=== PATIENT | male | born 1955 | race Two or more races ===

== ENCOUNTER 2024-09-26 15:13 | Observation (INO) | payer OTHER, MEDICAID, SELFPAY ==
[2024-09-26 15:15] VITALS: BP 120/68; PULSE 75; RESP 18; TEMP 36.7; O2SAT 96; BMI 31.6
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
[2024-09-26 15:26] VITALS: PULSE 94; RESP 18; O2SAT 96; BMI 31.6
[2024-09-26 16:15] LABS: Basophils # (Auto) 0.1 Thou/mm3 (0.0-0.2); Basophils % (Auto) 1 % (0-2.5); Eosinophils # (Auto) 0.1 Thou/mm3 (0.0-0.5); Eosinophils % (Auto) 1 % (0-10); Hematocrit 28.3 % (41.0-53.0); Hemoglobin 9.5 g/dL (13.5-16.0); Immature Granulocytes Auto 0.13 Thou/mm3 (0.00-0.00); Lactate (Lactic Acid) 2.7 mMol/L (0.4-2.0); Lymphocytes # (Auto) 3.0 Thou/mm3 (1.0-4.8); Lymphocytes % (Auto) 25 % (10-50); Mean Corpuscular HGB Conc 33.6 g/dl (31.0-37.0); Mean Corpuscular Hemoglobin 30.7 pg (25.0-35.0); Mean Corpuscular Volume 92 fL (80-100); Monocytes # (Auto) 0.8 Thou/mm3 (0.0-0.8); Monocytes % (Auto) 7 % (0-12); Neutrophils # (Auto) 7.7 Thou/mm3 (1.8-7.7); Neutrophils % (Auto) 65 % (37-80); Nucleated Red Blood Cell # 0.00 Thou/mm3 (0.00-0.00); Nucleated Red Blood Cell % 0 /100 WBC (0); Platelet Count 129 Thou/mm3 (140-440); RDW Standard Deviation 46.2 fL (35.1-43.9); Red Blood Count 3.09 Miln/mm3 (4.50-5.90); White Blood Count 11.9 Thou/mm3 (3.8-10.6)
[2024-09-26 16:48] LABS: Alanine Aminotransferase 24 U/L (10-49); Albumin, Serum 3.9 gm/dL (3.4-4.8); Albumin/Globulin Ratio 1.6 (1.2-2.2); Alcohol, Blood Medical < 3.0 mg/dL (0-10.0); Alkaline Phosphatase 92 U/L (46-116); Anion Gap 14 (7-16); Aspartate Amino Transferase 24 U/L (0-34); BUN/Creatinine Ratio 21 Ratio (12-20); Bilirubin,Total 0.6 mg/dL (0.3-1.2); Blood Urea Nitrogen 31 mg/dL (9-23); Calcium 9.2 mg/dL (8.3-10.6); Calcium (Corrected) 9.3 mg/dL (8.5-10.1); Carbon Dioxide 16.2 mMol/L (20.0-31.0); Chloride 110 mMol/L (98-107); Creatinine (Component) 1.5 mg/dL (0.6-1.3); Estimated Creatinine Clearance 48.8 mL/min (>60); Globulin 2.5 gm/dL (2.3-3.5); Glucose 104 mg/dL (74-106); Lipase 182 U/L (12-53); Osmolality,Calculated 285 (275-295); Potassium 4.1 mMol/L (3.4-5.1); Sodium 140 mMol/L (136-145); Total Protein 6.4 gm/dL (5.7-8.2); eGFR 49 See Note
[2024-09-26 17:01] LABS: INR 1.0 (0.9-1.3); Prothrombin Time 11.4 Seconds (9.0-12.2)
[2024-09-26] MEDS: MORPHINE SULF INJ 10 MG/ML VIAL 4 MG IM (17:18)
[2024-09-26] MEDS: RINGERS LACTATED 1000 ML 1,000 ML 999 ML IV ×2 (17:19→23:49)
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
[2024-09-26 19:11] LABS: Reflex Lactate? Y
[2024-09-26 19:35] VITALS: BP 102/47; PULSE 59; RESP 18; TEMP 36.4; O2SAT 97
[2024-09-26 19:41] LABS: Lactic Acid, 3 HR 4.6 mMol/L (0.4-2.0)
[2024-09-26 20:08] VITALS: BP 117/54; PULSE 74; RESP 15; TEMP 37.1; O2SAT 100
[2024-09-26 20:10] VITALS: PULSE 71
[2024-09-26] MEDS: ceFAZolin/D5W 2 GM IV 2 GM/100 ML BAG IV (20:11)
[2024-09-26] MEDS: MORPHINE SULF INJ 10 MG/ML VIAL 4 MG IVP (21:49)
[2024-09-26] MEDS: ONDANSETRON INJ 2 MG/ML INJ 2 ML 4 MG IVP (21:49)
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
[2024-09-26 22:25] VITALS: PULSE 66
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
[2024-09-27] VITALS (8 sets, daily range): BP systolic 121–159; BP diastolic 58–75; PULSE 62–88; RESP 16–18; TEMP 36.7–37.2; O2SAT 96–100
[2024-09-27 00:05] LABS: Lactate (Lactic Acid) 2.4 mMol/L (0.4-2.0)
[2024-09-27 00:31] LABS: Creatine Kinase 429 U/L (34-171)
--- NOTE | 2024-09-27 01:45 | PRELIM_ITS ---
Left upper extremity venous Doppler ultrasound. September 26, 2024 at 2356 hours Clinical history: Deep vein thrombosis, rule out. Technique: Duplex scan of the left arm performed utilizing, 2D grayscale imaging, Doppler spectral analysis and color flow Doppler with compression. Comparison: No prior study is available for comparison. Findings: The internal jugular vein is patent and compressible. The subclavian vein is patent. The axillary and brachial veins are patent and demonstrate good compression. The cephalic and basilic veins are patent and demonstrate good compression. The radial and ulnar veins are patent and compressible. No evidence of thrombosis. Impression: No evidence of venous thrombosis in the left upper extremity. Report Electronically Signed By: Galen Moreno 09/27/2024 1:45:05 AM [EST]
[2024-09-27] MEDS: RINGERS LACTATED 1000 ML 1,000 ML 100 ML IV ×2 (01:56→13:02)
[2024-09-27 02:06] LABS: Collection Type, Urine Voided; Squamous Epithelial Cell,Urine 0 /hpf (0-5)
[2024-09-27 02:14] LABS: Bilirubin,Urine Negative (Negative); Blood,Urine Negative (Negative); Clarity,Urine Clear (Clear/Hazy); Color,Urine Lt-Yellow (Lt Yel-Yel); Culture Indicated,Urine Not Indicated; Glucose, Urine Negative (Negative); Hyaline Casts,Urine < 1 /hpf (0-1); Ketones,Urine Negative (Negative); Leukocyte Esterase,Urine Negative (Negative); Nitrite,Urine Negative (Negative); PH,Urine 5.5 (5.0-7.0); Protein,Urine Negative (Neg - Trace); RBC,Urine 2 /hpf (0-3); Specific Gravity,Urine 1.028 (1.001-1.035); Urobilinogen,Urine Negative mg/dL (0.0-1.0); WBC,Urine 1 /hpf (0-5)
[2024-09-27 03:01] LABS: Reflex Lactate? Y
[2024-09-27 04:51] LABS: Lactic Acid, 3 HR 2.2 mMol/L (0.4-2.0)
[2024-09-27 04:59] LABS: Basophils # (Auto) 0.0 Thou/mm3 (0.0-0.2); Basophils % (Auto) 1 % (0-2.5); Eosinophils # (Auto) 0.0 Thou/mm3 (0.0-0.5); Eosinophils % (Auto) 0 % (0-10); Hematocrit 26.6 % (41.0-53.0); Immature Granulocytes Auto 0.05 Thou/mm3 (0.00-0.00); Lymphocytes # (Auto) 1.8 Thou/mm3 (1.0-4.8); Lymphocytes % (Auto) 21 % (10-50); Mean Corpuscular HGB Conc 33.1 g/dl (31.0-37.0); Mean Corpuscular Hemoglobin 30.0 pg (25.0-35.0); Mean Corpuscular Volume 91 fL (80-100); Monocytes # (Auto) 0.7 Thou/mm3 (0.0-0.8); Monocytes % (Auto) 8 % (0-12); Neutrophils # (Auto) 5.9 Thou/mm3 (1.8-7.7); Neutrophils % (Auto) 69 % (37-80); Nucleated Red Blood Cell # 0.00 Thou/mm3 (0.00-0.00); Nucleated Red Blood Cell % 0 /100 WBC (0); Platelet Count 102 Thou/mm3 (140-440); RDW Standard Deviation 45.2 fL (35.1-43.9); Red Blood Count 2.93 Miln/mm3 (4.50-5.90); White Blood Count 8.5 Thou/mm3 (3.8-10.6)
[2024-09-27 05:06] LABS: Hemoglobin 8.8 g/dL (13.5-16.0)
[2024-09-27 05:11] LABS: INR 1.1 (0.9-1.3); Partial Thromboplastin Time 27.7 Seconds (22.0-36.0); Prothrombin Time 12.0 Seconds (9.0-12.2)
[2024-09-27 05:14] LABS: Anion Gap 10 (7-16); BUN/Creatinine Ratio 24 Ratio (12-20); Blood Urea Nitrogen 34 mg/dL (9-23); Calcium 9.0 mg/dL (8.3-10.6); Carbon Dioxide 20.5 mMol/L (20.0-31.0); Chloride 110 mMol/L (98-107); Creatinine (Component) 1.4 mg/dL (0.6-1.3); Estimated Creatinine Clearance 52.2 mL/min (>60); Glucose 122 mg/dL (74-106); Magnesium 2.1 mg/dL (1.6-2.6); Osmolality,Calculated 288 (275-295); Potassium 4.1 mMol/L (3.4-5.1); Sodium 140 mMol/L (136-145); Triglycerides 125 mg/dL (30-150); eGFR 54 See Note
[2024-09-27 05:15] LABS: Cardiac Risk Estimate 3.3 RATIO (4.0-6.7); Cholesterol 86 mg/dL (132-200); HDL Cholesterol 26 mg/dL (40-60); LDL Cholesterol,Calculated 35 mg/dL (0-130); Phosphorous 3.4 mg/dL (2.4-5.1)
--- NOTE | 2024-09-27 07:42 | PC.NURSE ---
PT GCS 15 UPON ASSUMPTION OF CARE, DENIES ANY PAIN AT THIS TIME. SITTING UP ON STRETCHER EATING HIS BREAKFAST. VSS ON TELE, WILL CONT W/POC
[2024-09-27 09:47] LABS: Glucose Estimated Average 128 mg/dL (80-131); Hemoglobin A1C 6.1 % Hgb (4.8-6.0)
--- NOTE | 2024-09-27 12:14 | PC.SS ---
Patient is a 69 year old male presenting to the hospital for hip/shoulder fx. WHEAT INSPECTOR conducted bedside contact with patient, at bedside was his daughter Aysha. Patient was alert and oriented. Patient gave consent for daughter to be present in the room. Patient reports that he lives at home address [address] in [place], with , Brit. Patient reports that he does not use any DME at home. He is connected to [facility] in [place] last appointment was in July 2024. His pharmacy of choice is [facility]. Patient stated that in an event where he is unable to make medical decisionhe would like his Brit Julien PH: [phone] to make them. WHEAT INSPECTOR inquired about d/c plan, Daughter stated that if recommended by PT she would like father to return home with home health. HH preference is [facility]. SS will follow up with any other d/c needs. PCP: Dr. Agata Rome [facility] Decision maker: Brit Julien, , PH: [phone] D/C: Home with HH
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
--- NOTE | 2024-09-27 12:19 | PC.SS ---
TOOL AND DIE MACHINIST notified registration to update patients demographic information.
[2024-09-27] MEDS: HYDROcodone/APAP 5/325 TABLET 1 TAB PO ×2 (13:07→17:58)
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
[2024-09-27] MEDS: ATORVASTATIN CALCIUM 20 MG TABLET PO (20:02)
--- NOTE | 2024-09-27 20:09 | PC.NURSE ---
Was notified by family member if we are able to have a Dr. give a note for the family explaining that the patient is in the hospital in order to give it to [facility] to obtain report for patient. Per Dr. Dumas, will have to wait for day shift doctors to do Dr. Note
[2024-09-28] VITALS (8 sets, daily range): BP systolic 119–153; BP diastolic 57–73; PULSE 72–86; RESP 17–19; TEMP 36.1–37.2; O2SAT 94–97; BMI 31.8
[2024-09-28 06:27] LABS: Basophils # (Auto) 0.0 Thou/mm3 (0.0-0.2); Basophils % (Auto) 1 % (0-2.5); Eosinophils # (Auto) 0.1 Thou/mm3 (0.0-0.5); Eosinophils % (Auto) 2 % (0-10); Hematocrit 24.3 % (41.0-53.0); Immature Granulocytes Auto 0.02 Thou/mm3 (0.00-0.00); Lymphocytes # (Auto) 2.1 Thou/mm3 (1.0-4.8); Lymphocytes % (Auto) 27 % (10-50); Mean Corpuscular HGB Conc 34.2 g/dl (31.0-37.0); Mean Corpuscular Hemoglobin 30.9 pg (25.0-35.0); Mean Corpuscular Volume 90 fL (80-100); Monocytes # (Auto) 0.6 Thou/mm3 (0.0-0.8); Monocytes % (Auto) 8 % (0-12); Neutrophils # (Auto) 5.0 Thou/mm3 (1.8-7.7); Neutrophils % (Auto) 63 % (37-80); Nucleated Red Blood Cell # 0.00 Thou/mm3 (0.00-0.00); Nucleated Red Blood Cell % 0 /100 WBC (0); Platelet Count 96 Thou/mm3 (140-440); RDW Standard Deviation 44.9 fL (35.1-43.9); Red Blood Count 2.69 Miln/mm3 (4.50-5.90); White Blood Count 7.9 Thou/mm3 (3.8-10.6)
[2024-09-28 06:35] LABS: Hemoglobin 8.3 g/dL (13.5-16.0)
[2024-09-28 06:49] LABS: Anion Gap 11 (7-16); BUN/Creatinine Ratio 20 Ratio (12-20); Blood Urea Nitrogen 18 mg/dL (9-23); Calcium 9.0 mg/dL (8.3-10.6); Carbon Dioxide 22.4 mMol/L (20.0-31.0); Chloride 108 mMol/L (98-107); Creatinine (Component) 0.9 mg/dL (0.6-1.3); Estimated Creatinine Clearance 81.5 mL/min (>60); Glucose 113 mg/dL (74-106); Magnesium 1.8 mg/dL (1.6-2.6); Osmolality,Calculated 284 (275-295); Phosphorous 2.5 mg/dL (2.4-5.1); Potassium 4.0 mMol/L (3.4-5.1); Sodium 141 mMol/L (136-145); eGFR > 60 See Note
[2024-09-28] MEDS: HYDROcodone/APAP 5/325 TABLET 1 TAB PO ×2 (09:28→20:28)
--- NOTE | 2024-09-28 11:36 | PC.SS ---
Addendum entered by Beatriz Mcclellan 09/28/24 15:39: SS sent off inquiry to all local acute rehab centers. [facility] in [place] accepted and spoke to family. SS met with daughter, Aysha, who states their preference was [facility] acute rehab. SS has been providing [facility] with all updated clinicals. They are still in review. Patient will need prior auth. No PASRR needed for an acute. Original Note: -Follow up note: SS met with PT and daughter at bedside to discuss d/c plans. PT recommends acute rehab. Pending note, SS will send off to all surrounding acute rehab facilities. Family does not want [facility]. If no facilties accept, they will consider HH services. Daughter, Zhanna, at # [phone] is requesting a phone call from physician regarding her concerns for no surgery. SS updated physician team that daughter wants a phone call.
[2024-09-28] MEDS: INSULIN LISPRO (AdmeLOG) 1 UNIT/0.01 ML UNIT SC (11:48)
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
--- NOTE | 2024-09-28 18:00 | PC.NURSE ---
approximately @1600 I was inform by Dr. Harding to fax pt Medical history to [facility]. Beatriz helped translate consent to release pt medical recored to pt. Medical record were sent @17:50.
[2024-09-28] MEDS: ATORVASTATIN CALCIUM 20 MG TABLET PO (20:27)
[2024-09-29] VITALS (8 sets, daily range): BP systolic 107–150; BP diastolic 56–76; PULSE 70–92; RESP 17–18; TEMP 36.1–36.7; O2SAT 94–97; BMI 31.6
[2024-09-29 05:50] LABS: Basophils # (Auto) 0.1 Thou/mm3 (0.0-0.2); Basophils % (Auto) 1 % (0-2.5); Eosinophils # (Auto) 0.2 Thou/mm3 (0.0-0.5); Eosinophils % (Auto) 2 % (0-10); Hematocrit 24.1 % (41.0-53.0); Hemoglobin 8.2 g/dL (13.5-16.0); Immature Granulocytes Auto 0.04 Thou/mm3 (0.00-0.00); Lymphocytes # (Auto) 2.6 Thou/mm3 (1.0-4.8); Lymphocytes % (Auto) 28 % (10-50); Mean Corpuscular HGB Conc 34.0 g/dl (31.0-37.0); Mean Corpuscular Hemoglobin 30.4 pg (25.0-35.0); Mean Corpuscular Volume 89 fL (80-100); Monocytes # (Auto) 0.8 Thou/mm3 (0.0-0.8); Monocytes % (Auto) 9 % (0-12); Neutrophils # (Auto) 5.5 Thou/mm3 (1.8-7.7); Neutrophils % (Auto) 60 % (37-80); Nucleated Red Blood Cell # 0.00 Thou/mm3 (0.00-0.00); Nucleated Red Blood Cell % 0 /100 WBC (0); Platelet Count 110 Thou/mm3 (140-440); RDW Standard Deviation 43.8 fL (35.1-43.9); Red Blood Count 2.70 Miln/mm3 (4.50-5.90); White Blood Count 9.2 Thou/mm3 (3.8-10.6)
[2024-09-29 06:11] LABS: Anion Gap 9 (7-16); BUN/Creatinine Ratio 18 Ratio (12-20); Blood Urea Nitrogen 18 mg/dL (9-23); Calcium 9.0 mg/dL (8.3-10.6); Carbon Dioxide 21.9 mMol/L (20.0-31.0); Chloride 105 mMol/L (98-107); Creatinine (Component) 1.0 mg/dL (0.6-1.3); Estimated Creatinine Clearance 73.4 mL/min (>60); Glucose 118 mg/dL (74-106); Magnesium 1.8 mg/dL (1.6-2.6); Osmolality,Calculated 274 (275-295); Phosphorous 3.1 mg/dL (2.4-5.1); Potassium 4.0 mMol/L (3.4-5.1); Sodium 136 mMol/L (136-145); eGFR > 60 See Note
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
[2024-09-29] MEDS: HYDROcodone/APAP 5/325 TABLET 1 TAB PO ×2 (15:20→20:51)
[2024-09-29] MEDS: ATORVASTATIN CALCIUM 20 MG TABLET PO (20:51)
[2024-09-30] VITALS (10 sets, daily range): BP systolic 107–126; BP diastolic 50–61; PULSE 70–88; RESP 17–19; TEMP 36.2–36.5; O2SAT 95–99; BMI 32.0
[2024-09-30 06:27] LABS: Basophils # (Auto) 0.1 Thou/mm3 (0.0-0.2); Basophils % (Auto) 1 % (0-2.5); Eosinophils # (Auto) 0.2 Thou/mm3 (0.0-0.5); Eosinophils % (Auto) 2 % (0-10); Hematocrit 22.6 % (41.0-53.0); Immature Granulocytes Auto 0.05 Thou/mm3 (0.00-0.00); Lymphocytes # (Auto) 2.5 Thou/mm3 (1.0-4.8); Lymphocytes % (Auto) 31 % (10-50); Mean Corpuscular HGB Conc 34.5 g/dl (31.0-37.0); Mean Corpuscular Hemoglobin 31.1 pg (25.0-35.0); Mean Corpuscular Volume 90 fL (80-100); Monocytes # (Auto) 0.7 Thou/mm3 (0.0-0.8); Monocytes % (Auto) 9 % (0-12); Neutrophils # (Auto) 4.7 Thou/mm3 (1.8-7.7); Neutrophils % (Auto) 57 % (37-80); Nucleated Red Blood Cell # 0.00 Thou/mm3 (0.00-0.00); Nucleated Red Blood Cell % 0 /100 WBC (0); Platelet Count 104 Thou/mm3 (140-440); RDW Standard Deviation 44.5 fL (35.1-43.9); Red Blood Count 2.51 Miln/mm3 (4.50-5.90); White Blood Count 8.2 Thou/mm3 (3.8-10.6)
[2024-09-30 06:30] LABS: Hemoglobin 7.8 g/dL (13.5-16.0)
[2024-09-30 06:50] LABS: Alanine Aminotransferase 24 U/L (10-49); Albumin, Serum 3.6 gm/dL (3.4-4.8); Albumin/Globulin Ratio 1.6 (1.2-2.2); Alkaline Phosphatase 76 U/L (46-116); Anion Gap 11 (7-16); Aspartate Amino Transferase 32 U/L (0-34); BUN/Creatinine Ratio 20 Ratio (12-20); Bilirubin,Total 1.3 mg/dL (0.3-1.2); Blood Urea Nitrogen 20 mg/dL (9-23); Calcium 8.6 mg/dL (8.3-10.6); Calcium (Corrected) 8.9 mg/dL (8.5-10.1); Carbon Dioxide 22.1 mMol/L (20.0-31.0); Chloride 104 mMol/L (98-107); Creatinine (Component) 1.0 mg/dL (0.6-1.3); Estimated Creatinine Clearance 71.8 mL/min (>60); Globulin 2.2 gm/dL (2.3-3.5); Glucose 103 mg/dL (74-106); Magnesium 2.0 mg/dL (1.6-2.6); Osmolality,Calculated 276 (275-295); Phosphorous 3.4 mg/dL (2.4-5.1); Potassium 3.9 mMol/L (3.4-5.1); Sodium 137 mMol/L (136-145); Total Protein 5.8 gm/dL (5.7-8.2); eGFR > 60 See Note
[2024-09-30] MEDS: HYDROcodone/APAP 5/325 TABLET 1 TAB PO (09:50)
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
[2024-09-30] MEDS: MORPHINE SULF INJ 10 MG/ML VIAL 2 MG IVP (12:37)
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
--- NOTE | 2024-09-30 19:15 | PC.NURSE ---
Report received, pt currently sitting up at side of bed no current complaints at this time, call light within reach.
[2024-09-30] MEDS: ATORVASTATIN CALCIUM 20 MG TABLET PO (20:02)
[2024-10-01] VITALS (10 sets, daily range): BP systolic 96–147; BP diastolic 49–73; PULSE 68–91; RESP 17–26; TEMP 36.3–37.3; O2SAT 92–98; BMI 32.0
[2024-10-01] MEDS: HYDROcodone/APAP 5/325 TABLET 1 TAB PO (02:13)
[2024-10-01] MEDS: DOCUSATE SOD 100 MG CAPSULE PO (02:13)
[2024-10-01 06:03] LABS: Basophils # (Auto) 0.0 Thou/mm3 (0.0-0.2); Basophils % (Auto) 1 % (0-2.5); Eosinophils # (Auto) 0.1 Thou/mm3 (0.0-0.5); Eosinophils % (Auto) 2 % (0-10); Hematocrit 21.0 % (41.0-53.0); Immature Granulocytes Auto 0.03 Thou/mm3 (0.00-0.00); Lymphocytes # (Auto) 2.0 Thou/mm3 (1.0-4.8); Lymphocytes % (Auto) 31 % (10-50); Mean Corpuscular HGB Conc 34.8 g/dl (31.0-37.0); Mean Corpuscular Hemoglobin 31.2 pg (25.0-35.0); Mean Corpuscular Volume 90 fL (80-100); Monocytes # (Auto) 0.6 Thou/mm3 (0.0-0.8); Monocytes % (Auto) 9 % (0-12); Neutrophils # (Auto) 3.8 Thou/mm3 (1.8-7.7); Neutrophils % (Auto) 57 % (37-80); Nucleated Red Blood Cell # 0.00 Thou/mm3 (0.00-0.00); Nucleated Red Blood Cell % 0 /100 WBC (0); Platelet Count 107 Thou/mm3 (140-440); RDW Standard Deviation 43.9 fL (35.1-43.9); Red Blood Count 2.34 Miln/mm3 (4.50-5.90); White Blood Count 6.7 Thou/mm3 (3.8-10.6)
[2024-10-01 06:20] LABS: Hemoglobin 7.3 g/dL (13.5-16.0)
[2024-10-01 06:43] LABS: Alanine Aminotransferase 28 U/L (10-49); Albumin, Serum 3.4 gm/dL (3.4-4.8); Albumin/Globulin Ratio 1.5 (1.2-2.2); Alkaline Phosphatase 78 U/L (46-116); Anion Gap 10 (7-16); Aspartate Amino Transferase 31 U/L (0-34); BUN/Creatinine Ratio 19 Ratio (12-20); Bilirubin,Total 1.3 mg/dL (0.3-1.2); Blood Urea Nitrogen 19 mg/dL (9-23); Calcium 8.8 mg/dL (8.3-10.6); Calcium (Corrected) 9.3 mg/dL (8.5-10.1); Carbon Dioxide 21.0 mMol/L (20.0-31.0); Chloride 106 mMol/L (98-107); Creatinine (Component) 1.0 mg/dL (0.6-1.3); Estimated Creatinine Clearance 72.2 mL/min (>60); Globulin 2.2 gm/dL (2.3-3.5); Glucose 111 mg/dL (74-106); Magnesium 2.2 mg/dL (1.6-2.6); Osmolality,Calculated 277 (275-295); Phosphorous 4.0 mg/dL (2.4-5.1); Potassium 4.4 mMol/L (3.4-5.1); Sodium 137 mMol/L (136-145); Total Protein 5.6 gm/dL (5.7-8.2); eGFR > 60 See Note
--- NOTE | 2024-10-01 08:50 | PC.SS ---
Follow up note: ZAIRE spoke to Linda @ [facility] acute rehab regards to updated clinicals and response. BALBINA Davis states she will meet with her physician this morning to see if patient is appropriate and if so will start auth. SS spoke to our physician team and patient may not be ready today as they need to find the source of bleeding. Patient has positive family support. Daughter is a nurse and can assist in caring for patient once home. Two other facilities in [place] have accepted as well.
[2024-10-01] MEDS: SODIUM CHLORIDE 0.9% 500 ML 500 ML 999 ML IV (09:44)
[2024-10-01 10:29] LABS: LDH (Lactate Dehydrogenase) 239 U/L (120-246)
[2024-10-01 10:30] LABS: Iron 29 mcg/dL (65-175); Percent Iron Saturation 9 % (20-55); Total Iron Binding Capacity 296 mcg/dL (250-425); Unsaturated Iron Binding 267 (225-295)
[2024-10-01 10:36] LABS: Immature Reticulocyte Fraction 37.8 % (2.3-13.4); Reticulocyte % (Auto) 3.3 % (0.5-1.5); Reticulocyte Absolute Auto 81.5 Biln/L (25.0-75.0); Reticulocyte Hgb Content 33.9 pg (28.0-35.0)
[2024-10-01 10:44] LABS: Fibrinogen 379 mg/dL (175-375); INR 1.1 (0.9-1.3); Partial Thromboplastin Time 30.1 Seconds (22.0-36.0); Prothrombin Time 11.7 Seconds (9.0-12.2)
[2024-10-01 10:46] LABS: Path Review Blood Smear Sent to Pathologist
--- NOTE | 2024-10-01 11:20 | PT.ODAYNRPT ---
PT Outpatient Daily Note OP Daily Note Outpatient Physical Therapy Treatment Date: 10/01/24 Visit Reasons: HIP/SHOULDER FX
[2024-10-01 12:11] LABS: D-Dimer 2850 ng/mL (<600)
[2024-10-01 13:17] LABS: OBS Developer Lot # 04/24; OBS Performed By ANDEK2; OBS QC OK? Yes; Occult Blood, Stool Negative (Negative)
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
--- NOTE | 2024-10-01 15:40 | EKG_ITS ---
[facility] Test Date: 2024-10-01 Pat Name: PARADISE PEREZ [facility] Gender: Male Community [employer] Secretary: ELSA : 1955 Requested By: Gerardo Narvaez Order Number: [id number] Reading MD: Gerardo Narvaez Measurements Intervals [place] Rate: 72 P: 68 [place]: 185 QRS: 15 QRSD: 102 T: 55 QT: 389 QTc: 427 Interpretive Statements SINUS RHYTHM Compared to ECG 04/13/2021 13:05:12 No significant changes /store/S0/[id number].pdf
--- NOTE | 2024-10-01 15:44 | CHAP ---
Rapid Response Call. Prayed outside room for patient and staff. No family present.
--- NOTE | 2024-10-01 15:48 | PD.RESEVENT ---
Documentation for date of: 10/01/24 Event Note Event Note: At ~340 pm, patient had a rapid response called after he awoke from his legs shaking and felt heart palpitations. Patient was immediately seen by the team and was hemodynamically stable, no longer shaking or having palpitations, in no acute distress, and without complaints or concerns. Patient's telemetry was checked and was unremarkable. Patient's vitals were stable. Patient's glucose was checked and was normal. EKG and hemoglobin was ordered.
--- NOTE | 2024-10-01 16:23 | PC.NURSE ---
MD made aware that after RR patient complains of Nausea and dizziness. MD will assess patient at bedside, no new orders.
[2024-10-01 16:28] LABS: Hematocrit 22.5 % (41.0-53.0)
[2024-10-01 16:53] LABS: Hemoglobin 7.7 g/dL (13.5-16.0)
[2024-10-01] MEDS: ATORVASTATIN CALCIUM 20 MG TABLET PO (20:18)
[2024-10-02] VITALS (8 sets, daily range): BP systolic 109–142; BP diastolic 53–81; PULSE 67–88; RESP 16–23; TEMP 36.4–37.2; O2SAT 95–99
--- NOTE | 2024-10-02 00:22 | PC.NURSE ---
Patient stating pain at 07/17. Dr. Tavarez notified and is OK with giving a one time dose of 5 mg norco at this time.
[2024-10-02] MEDS: HYDROcodone/APAP 5/325 TABLET 1 TAB PO (00:32)
[2024-10-02 05:28] LABS: Basophils # (Auto) 0.0 Thou/mm3 (0.0-0.2); Basophils % (Auto) 1 % (0-2.5); Eosinophils # (Auto) 0.2 Thou/mm3 (0.0-0.5); Eosinophils % (Auto) 3 % (0-10); Hematocrit 20.9 % (41.0-53.0); Immature Granulocytes Auto 0.02 Thou/mm3 (0.00-0.00); Lymphocytes # (Auto) 1.8 Thou/mm3 (1.0-4.8); Lymphocytes % (Auto) 31 % (10-50); Mean Corpuscular HGB Conc 34.4 g/dl (31.0-37.0); Mean Corpuscular Hemoglobin 31.0 pg (25.0-35.0); Mean Corpuscular Volume 90 fL (80-100); Monocytes # (Auto) 0.6 Thou/mm3 (0.0-0.8); Monocytes % (Auto) 10 % (0-12); Neutrophils # (Auto) 3.3 Thou/mm3 (1.8-7.7); Neutrophils % (Auto) 56 % (37-80); Nucleated Red Blood Cell # 0.00 Thou/mm3 (0.00-0.00); Nucleated Red Blood Cell % 0 /100 WBC (0); Platelet Count 128 Thou/mm3 (140-440); RDW Standard Deviation 45.0 fL (35.1-43.9); Red Blood Count 2.32 Miln/mm3 (4.50-5.90); White Blood Count 5.8 Thou/mm3 (3.8-10.6)
[2024-10-02 05:33] LABS: Hemoglobin 7.2 g/dL (13.5-16.0)
[2024-10-02 05:46] LABS: Alanine Aminotransferase 30 U/L (10-49); Albumin, Serum 3.3 gm/dL (3.4-4.8); Albumin/Globulin Ratio 1.5 (1.2-2.2); Alkaline Phosphatase 85 U/L (46-116); Anion Gap 11 (7-16); Aspartate Amino Transferase 31 U/L (0-34); BUN/Creatinine Ratio 18 Ratio (12-20); Bilirubin,Total 1.0 mg/dL (0.3-1.2); Blood Urea Nitrogen 18 mg/dL (9-23); Calcium 8.7 mg/dL (8.3-10.6); Calcium (Corrected) 9.3 mg/dL (8.5-10.1); Carbon Dioxide 19.8 mMol/L (20.0-31.0); Chloride 108 mMol/L (98-107); Creatinine (Component) 1.0 mg/dL (0.6-1.3); Estimated Creatinine Clearance 72.2 mL/min (>60); Globulin 2.2 gm/dL (2.3-3.5); Glucose 115 mg/dL (74-106); Magnesium 2.0 mg/dL (1.6-2.6); Osmolality,Calculated 280 (275-295); Phosphorous 4.1 mg/dL (2.4-5.1); Potassium 4.3 mMol/L (3.4-5.1); Sodium 139 mMol/L (136-145); Total Protein 5.5 gm/dL (5.7-8.2); eGFR > 60 See Note
--- NOTE | 2024-10-02 08:46 | PC.SS ---
PUMP INSTALLATION AND SERVICER spoke to admissions at [facility], staff stated that authorization is still pending, PUMP INSTALLATION AND SERVICER provided ext number and updated labs, vitals, progress notes, PT note.
[2024-10-02 10:29] LABS: Ferritin 56 ng/mL (10.5-307.3)
--- NOTE | 2024-10-02 10:56 | PC.NURSE ---
MD. Harding made aware that patient has no PRN pain management other that PRN Tylenol for mild pain. MD will add new orders for updated pain scale management.
--- NOTE | 2024-10-02 11:23 | PC.SS ---
Addendum entered by ED Davis 10/02/24 11:27: ENGAGEMENT MANAGER notified doctor. Original Note: Susan at [facility] stated that their MD would like to observe patient for 24 hours and would like for him to work with therapy today if he has no further issues and does better with therapy today they will consider him for acute rehab tomorrow. call back number for Susan is [phone].
[2024-10-02] MEDS: IRON SUCROSE CPLX INJ 20 MG/ML VIAL 5 ML 200 MG IVP (12:20)
[2024-10-02 13:27] LABS: Hematocrit 22.3 % (41.0-53.0)
[2024-10-02 13:37] LABS: Hemoglobin 7.5 g/dL (13.5-16.0)
--- NOTE | 2024-10-02 13:43 | PD.RESDS ---
Planned Discharge Date 10/02/24 DS: Providers Provider Date of admission: 09/26/24 23:25 Primary care physician: Agata Rome NP Admitting Provider: Luis Enrique Green MD Attending Provider on Admission: Jose Angel Lam MD Consults: 09/26/24 22:15 Consult to Orthopedic Stat Comment: Consulting Provider: Jn Daniels 09/26/24 23:25 Referral Physical Therapy Routine Comment: Physician Instructions: 09/30/24 08:59 Referral Speech Therapy Stat Comment: Instructions: pt had difficulty swallowing when eating breakfast this morning Attending Provider on DC: Jose Angel Lam MD Discharging Provider: Jose Angel Lam MD DS: Diagnosis Problem List Completed Was Problem List Reviewed/Reconciled?: Yes Hospital Course Hospital Course Hospital course: Hosp course... Imaging Findings: Discharge Instructions Admission Diagnosis Patient plan of care was discussed with the attending physician, Dr. Gary Harding MD PGY-1 Time Spent with Patient Time attestation: Total time spent providing and/or coordinating discharge services: Time spent: Greater than 30 minutes Exam Vital Signs Temp Pulse Resp BP Pulse Ox O2 Del Method 97.6 F 79 23 H 142/81 H 99 Room Air 10/02/24 12:00 10/02/24 12:00 10/02/24 12:00 10/02/24 12:00 10/02/24 12:00 10/02/24 12:00 Discharge Plan Problem List Was Problem List Reviewed/Reconciled?: Yes Plan Patient Disposition: Xfer Other Disposition Comment: Acute Rehab Patient condition on transfer: Stable Care Plan Goals: Discharge instructions Follow-up with your PCP within 1 week to You will need to repeat blood work including CBC to monitor your blood level. You will need a reverse total shoulder which will be done outpatient. Have your PCP refer you to a orthopedic surgeon Take your medicines as prescribed Return to ED if your symptoms worsen or return Prescriptions/Referrals Prescriptions/Med Rec: New hydrocodone-acetaminophen 5-325 mg tablet 1 tab PO Q8H MDD 3 tabs PRN (Reason: pain) Qty: 14 0RF Continued lisinopril 40 mg tablet 40 mg PO QDAY hydrochlorothiazide 12.5 mg tablet 12.5 mg PO QAM rosuvastatin 10 mg tablet 10 mg PO QDAY Januvia 100 mg tablet 100 mg PO QDAY metformin 1,000 mg tablet 1,000 mg PO BID ferrous sulfate [Feosol] 325 mg (65 mg iron) tablet 325 mg PO QDAY 21 Days Qty: 21 0RF Referrals: Agata Rome NP [Primary Care Provider] - Outpatient Orders (i.e. Home Health, Labs, Imaging): CBC (Routine) Timeframe: 1 Week Location: Determined by Patient Ordered By: Alonso Contreras Patient/Caregiver Discharge Instructions Discharge Activity: as per physical therapy Education Materials: How Bones Heal, ED Fracture, Upper Extremity, ED Pelvic Fracture Print Language: [place]guill[place] Stand Alone Forms: Genevieve Award Info., Patient Portal Info Letter Quality Discharge Quality Measures VTE prophylaxis
--- NOTE | 2024-10-02 14:42 | PC.SS ---
ED confirmed with Som at [facility] that patient has authorization however their MD felt due to low hemoglobin and rapid event yesterday patient should be monitored for 24 hours and stable before d/c.
--- NOTE | 2024-10-02 15:35 | PC.SS ---
Rounding note: pending acceptance from [facility] due to needing new PT note, and rapid yesterday, repeat hemoglobin.
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
[2024-10-02] MEDS: ATORVASTATIN CALCIUM 20 MG TABLET PO (20:24)
--- NOTE | 2024-10-02 20:35 | PC.NURSE ---
Patient is asking for medication to help him fall asleep. MD notified and ordered benadry 25mg IVP X1.
[2024-10-03] VITALS: BP 142/69; PULSE 78; PULSE 82; RESP 17; TEMP 36.8; O2SAT 96
[2024-10-03 04:00] VITALS: BP 117/53; PULSE 65; RESP 17; TEMP 36.4; O2SAT 99
[2024-10-03 06:00] VITALS: BMI 31.8
[2024-10-03 06:29] LABS: Basophils # (Auto) 0.1 Thou/mm3 (0.0-0.2); Basophils % (Auto) 1 % (0-2.5); Eosinophils # (Auto) 0.2 Thou/mm3 (0.0-0.5); Eosinophils % (Auto) 2 % (0-10); Hematocrit 23.0 % (41.0-53.0); Immature Granulocytes Auto 0.05 Thou/mm3 (0.00-0.00); Lymphocytes # (Auto) 1.7 Thou/mm3 (1.0-4.8); Lymphocytes % (Auto) 25 % (10-50); Mean Corpuscular HGB Conc 33.5 g/dl (31.0-37.0); Mean Corpuscular Hemoglobin 30.3 pg (25.0-35.0); Mean Corpuscular Volume 91 fL (80-100); Monocytes # (Auto) 0.6 Thou/mm3 (0.0-0.8); Monocytes % (Auto) 9 % (0-12); Neutrophils # (Auto) 4.2 Thou/mm3 (1.8-7.7); Neutrophils % (Auto) 62 % (37-80); Nucleated Red Blood Cell # 0.00 Thou/mm3 (0.00-0.00); Nucleated Red Blood Cell % 0 /100 WBC (0); Platelet Count 156 Thou/mm3 (140-440); RDW Standard Deviation 44.9 fL (35.1-43.9); Red Blood Count 2.54 Miln/mm3 (4.50-5.90); White Blood Count 6.7 Thou/mm3 (3.8-10.6)
[2024-10-03 07:01] LABS: Hemoglobin 7.7 g/dL (13.5-16.0)
[2024-10-03 07:02] LABS: Alanine Aminotransferase 41 U/L (10-49); Albumin, Serum 3.7 gm/dL (3.4-4.8); Albumin/Globulin Ratio 1.5 (1.2-2.2); Alkaline Phosphatase 103 U/L (46-116); Anion Gap 11 (7-16); Aspartate Amino Transferase 37 U/L (0-34); BUN/Creatinine Ratio 14 Ratio (12-20); Bilirubin,Total 1.3 mg/dL (0.3-1.2); Blood Urea Nitrogen 13 mg/dL (9-23); Calcium 9.1 mg/dL (8.3-10.6); Calcium (Corrected) 9.3 mg/dL (8.5-10.1); Carbon Dioxide 19.6 mMol/L (20.0-31.0); Chloride 106 mMol/L (98-107); Creatinine (Component) 0.9 mg/dL (0.6-1.3); Estimated Creatinine Clearance 79.9 mL/min (>60); Globulin 2.5 gm/dL (2.3-3.5); Glucose 109 mg/dL (74-106); Magnesium 2.1 mg/dL (1.6-2.6); Osmolality,Calculated 274 (275-295); Phosphorous 3.6 mg/dL (2.4-5.1); Potassium 4.2 mMol/L (3.4-5.1); Sodium 137 mMol/L (136-145); Total Protein 6.2 gm/dL (5.7-8.2); eGFR > 60 See Note
[2024-10-03 08:00] VITALS: BP 122/56; PULSE 78; PULSE 85; RESP 19; TEMP 36.7; O2SAT 96
[2024-10-03] MEDS: IRON SUCROSE CPLX INJ 20 MG/ML VIAL 5 ML 200 MG IVP (08:59)
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
[2024-10-03 11:48] VITALS: BMI 15.0
--- NOTE | 2024-10-03 11:57 | PC.SS ---
Follow up note: SS met with patient with email marketing processor and floor nurse. Patient is from home and will d/c home today. Patient worked with PT. SS verified with PT that they recommend HH services only. Patient does not need SNF. Patient confirmed he already has a walker at home. Patient was being seen by [facility]. Patient last appt. was 2 months ago. Pharmacy: [facility]. Patient's family are not answering their phones and do not have voice mail set up. However, patient states he has lots of family that he resides with and they are home. Patient also confirmed he also has a pompa to his home. Patient can d/c via medi van and will need a wheelchair to sit in. SS discussed with patient and floor nurse we can set up medi van transport for later this afternoon. UPdated physician team who will change order to HH for medication managment, safety eval and PT.
[2024-10-03 12:00] VITALS: BP 119/51; PULSE 68; PULSE 80; RESP 18; TEMP 36.6; O2SAT 98
[2024-10-03 16:00] VITALS: BP 122/70; PULSE 70; PULSE 80; RESP 18; TEMP 36.4; O2SAT 98
[2024-10-03] MEDS: HYDROcodone/APAP 5/325 TABLET 1 TAB PO (16:18)
[2024-10-09 07:03] LABS: Haptoglobin* 113 mg/dL (43-212)
== END 2024-10-03 16:27 | disposition other institution (70) ==
LOC: SERX 22:24 → SERHOLD 09-27 00:14 → S3NX 09-27 16:52 → SERHOLD 09-28 09:37 → S3NX 09-28 09:37
PROVIDERS: Physician Assistant Medical; Student in an Organized Health Care Education/Training Program; Admitting Provider Student in an Organized Health Care Education/Training Program; Emergency Provider Emergency Medicine; PCP Nurse Practitioner Family; Visit Provider Student in an Organized Health Care Education/Training Program
DX: S42.291A Other displaced fracture of upper end of right humerus, initial encounter for closed fracture (principal); S32.591A Other specified fracture of right pubis, initial encounter for closed fracture; E87.20 Acidosis, unspecified; N17.9 Acute kidney failure, unspecified; S42.211A Unspecified displaced fracture of surgical neck of right humerus, initial encounter for closed fracture; I10 Essential (primary) hypertension; E11.9 Type 2 diabetes mellitus without complications; E78.5 Hyperlipidemia, unspecified; V03.10XA Pedestrian on foot injured in collision with car, pick-up truck or van in traffic accident, initial encounter; Z87.891 Personal history of nicotine dependence; R79.89 Other specified abnormal findings of blood chemistry; D62 Acute posthemorrhagic anemia; D69.6 Thrombocytopenia, unspecified; M54.2 Cervicalgia; R51.9 Headache, unspecified
CPT/HCPCS: 36415; 70450; 71250; 71260; 72125; 73030; 73080; 73200; 73552; 73562; 74176; 74177; 80048; 80053; 80061; 80320; 81001; 82270; 82550; 82728; 83010; 83036; 83540; 83550; 83605; 83615; 83690; 83735; 84100; 85007; 85014; 85018; 85025; 85027; 85046; 85379; 85384; 85610; 85730; 92610; 93005; 93971; 96361; 96365; 96366; 96372; 96375; 96376; 97162; 99285; A4649; G0378; J0689; J1200; J1756; J1815; J2270; J2405; J7120; J7999; Q9967; A9270; G0480

== ENCOUNTER 2024-10-16 08:24 | Outpatient (AMB) | payer OTHER, MEDICAID, SELFPAY ==
[2024-10-16 08:33] VITALS: BP 134/64; PULSE 87; RESP 19; TEMP 36.6; O2SAT 98; BMI 30.5
--- NOTE | 2024-10-16 08:33 | ORTHONT_ITS ---
Vital signs 10/16/24 08:33 Height 1.7 m Height Method Stated Weight 88.252 kg Weight Measurement Method Standing Scale BMI 30.5 BP 134/64 H Blood Pressure Source Automatic Cuff Blood Pressure Location Left Upper Arm Position Sitting Respiration 19 Pulse 87 Pulse Source Monitor Temp 97.8 F Temp Source Temporal Artery Scan Pulse Oximetry (%) 98 Oxygen Delivery Method Room Air Med/Allergies Allergies & Medications Allergies No Known Allergies Allergy (Verified 10/16/24 08:34) Medication Reconciliation hydrocodone 5 mg-acetaminophen 325 mg tablet 1 tab PO Q8H PRN pain #14 tabs 09/26/24 [Rx Confirmed 10/16/24] hydrochlorothiazide 12.5 mg tablet 12.5 mg PO QAM 09/27/24 [History Confirmed 10/16/24] lisinopril 40 mg tablet 40 mg PO QDAY 09/27/24 [History Confirmed 10/16/24] metformin 1,000 mg tablet 1,000 mg PO BID 09/27/24 [History Confirmed 10/16/24] rosuvastatin 10 mg tablet 10 mg PO QDAY 09/27/24 [History Confirmed 10/16/24] sitagliptin phosphate 100 mg tablet (Januvia) 100 mg PO QDAY 09/27/24 [History Confirmed 10/16/24] ferrous sulfate 325 mg (65 mg iron) tablet (Feosol) 325 mg PO QDAY 3 weeks #21 tabs 10/02/24 [Rx Confirmed 10/16/24] Exam Exam Patient is in no acute distress and is cooperative with the examination today. Breathing is nonlabored. In no respiratory distress. Patient has no paraspinal tenderness. Spinal deformity cannot be appreciated. The gait of the patient is nonantalgic Bilateral extremities were evaluated and demonstrates sensation intact to light touch. Palpable pedal pulses are present. No significant edema is present. Bilateral knees were examined and the patient has full strength and range of motion.. The left hip was examined. Patient was able to flex to 90 degrees, adduct to 30 degrees, abduct to 40 degrees, internally rotate to 20 degrees, and externally rotate to 20 degrees. Patient has a negative logroll. Stinchfield is negative. The patient is nontender diffusely to touch. The right hip was examined. Patient was able to flex to 90 degrees, adduct to 30 degrees, abduct to 40 degrees, internally rotate to 20 degrees, and externally rotate to 20 degrees. Patient has a negative logroll. The stinchfield is negative. He is tender over the pubic ramus Assessment and Plan Problem List (1) Closed fracture of multiple pubic rami: Status: Acute Plan: Patient is a pleasant 69-year-old male with multiple pubic ramus fractures as well as a proximal humerus fracture including a displaced greater trochanter fragment that would likely need a shoulder arthroplasty. He is being referred to [facility] for this. He is walking quite well. We will get x-rays to evaluate his pubic ramus fractures. We will see him back in approximately 4 weeks for follow-up of his pubic ramus fracture Advanced Care Planning Discussion Advance care planning discussed with:: patient Office Procedures GNS Level of Care Nursing/Assessment Patient Status: Initial/New Patient Nursing Assessment/Reassesment: Medication Reconciliation, Update PMH in EMR and Vital Signs Coordination of Care: Complex Care and Chronic Disease 1-5, Education Complex Pt/Fam, Consent,records obtained, informed consent, 1 Ins Authorization, Lab and Imaging orders, Results/Orders obtained and Staff clarify orders New Patient Charge New Patient Point Assignment: 1124 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 ([id number]) MA Intake Visit Data Collection New Patient or Established: New Patient (never been to [facility]) Reason for Visit:: Closed fracture of multiple pubic rami Seen by Clinical Staff ONLY (RN/MA): No Assistant Branch Operations Manager Required: No PCP or OBGYN visit in last 3 months: Yes Hx Now: No Do You Feel Safe at Home: Yes Authorities Contacted: N/A Questionairres Past Medical History Past Medical History Have you ever been diagnosed with any of the following: Neurological Problems Cerebrovascular Accident (CVA): No Transient Ischemic Attacks (TIA): No Dementia: No Alzheimer's Disease: No Parkinson's Disease: No Brain Tumor: No Meningitis: No Seizures: No Epilepsy: No Multiple Sclerosis: No Cerebral Palsy: No Amyotrophic Lateral Sclerosis (ALS/Jacki Gehrig's): No Guillain-Blandburg Syndrome: No Spina Bifida: No Paralysis: No Peripheral Neuropathy: No Altamirano's Palsy: No Subdural Hematoma: No Migraine: No Head Trauma: No Spinal Cord Injury: No Traumatic Brain Injury: No Cardiology Problems Hypercholesterolemia: Yes Congestive Heart Failure: No Hypertension: Yes Respiratory Problems Chronic Obstructive Pulmonary Disease (COPD): No Asthma: No Smoking: No Smoking Cessation Counseling: No Smoking Exposure: No Genital/Urinary Problems Renal Disease: No Endocrine Problems Diabetes Mellitus Type 1: No Diabetes Mellitus Type 2: Yes (TYPE 2) Blood Problems Sickle Cell Disease: No Other Problems Cancer: No Subjective Visit Visit for: new patient and hip Immunization / Flu Flu Vaccine in the Last 12 Months: No Flu Vaccine Exclusion Criteria: No Exclusion Criteria History of Present Illness Chief complaint: Closed fracture of multiple pubic rami Date of injury / onset of symptoms: 09/26/2024 Patient is a 69-year-old male with multiple pubic ramus fractures as well as a three-part humeral head fracture involving a displaced greater tuberosity fragment. He reports significant shoulder pain. He is walking with a cane. He is actually walking pretty well and he reports pain is controlled. I am seeing him for his pelvis as he is getting a referral for a reverse total shoulder arthroplasty in [employer] Personal History Occupation: RETIRED Pain Pain level (0-10): 3 Pain duration: ON AND OFF Pain location: groin and inside (medial) Pain quality: aching Ambulatory data Ambulatory device: cane Treatments Improvement with previous injections: No Improvement with PT: No Improvement with NSAIDS: no Review of Systems Review of Systems: All systems negative unless otherwise noted in HPI.
--- NOTE | 2024-10-16 08:44 | XR_ITS ---
Examination:Right hip AP, lateral, AP pelvis 3 views Technique: Hip AP lateral, AP pelvis, 3 views Exam date and time:October 16, 2024 0850 hours INDICATIONS: Injury to the pelvis, pelvic pain, acute nondisplaced fractures right inferior superior inferior margin CT pelvis September 26, 2024 FINDINGS: Healing fractures right superior inferior pubic rami with satisfactory alignment Hips intact with moderate narrowing hip joints IMPRESSION: Healing fractures right superior inferior pubic rami with satisfactory alignment.
== END 2024-10-16 08:47 | disposition home or self-care (01) ==
LOC: HODSRG 08:24
PROVIDERS: PCP Nurse Practitioner Family; Referring Provider Nurse Practitioner Family; Supervising Provider Orthopaedic Surgery Adult Reconstructive Orthopaedic Surgery; Visit Provider Orthopaedic Surgery Adult Reconstructive Orthopaedic Surgery
DX: S32.511D Fracture of superior rim of right pubis, subsequent encounter for fracture with routine healing (principal); S42.253D Displaced fracture of greater tuberosity of unspecified humerus, subsequent encounter for fracture with routine healing; X58.XXXD Exposure to other specified factors, subsequent encounter; E11.9 Type 2 diabetes mellitus without complications; I10 Essential (primary) hypertension; E78.00 Pure hypercholesterolemia, unspecified
CPT/HCPCS: 73502; 99203; G0463

== ENCOUNTER 2024-11-06 08:15 | Outpatient (AMB) | payer OTHER, MEDICAID, SELFPAY ==
--- NOTE | 2024-11-06 08:31 | PD.ORTHCLVIS ---
Vital signs 11/06/24 08:32 Height 1.7 m Height Method Stated Weight 89.811 kg Weight Measurement Method Standing Scale BMI 31.1 BP 128/71 Blood Pressure Source Automatic Cuff Blood Pressure Location Left Upper Arm Position Sitting Respiration 18 Pulse 70 Pulse Source Monitor Temp 97.8 F Temp Source Temporal Artery Scan Pulse Oximetry (%) 96 Oxygen Delivery Method Room Air Med/Allergies Allergies & Medications Allergies No Known Allergies Allergy (Verified 11/06/24 08:33) Medication Reconciliation hydrocodone 5 mg-acetaminophen 325 mg tablet 1 tab PO Q8H PRN pain #14 tabs 09/26/24 [Rx Confirmed 11/06/24] hydrochlorothiazide 12.5 mg tablet 12.5 mg PO QAM 09/27/24 [History Confirmed 11/06/24] lisinopril 40 mg tablet 40 mg PO QDAY 09/27/24 [History Confirmed 11/06/24] metformin 1,000 mg tablet 1,000 mg PO BID 09/27/24 [History Confirmed 11/06/24] rosuvastatin 10 mg tablet 10 mg PO QDAY 09/27/24 [History Confirmed 11/06/24] sitagliptin phosphate 100 mg tablet (Januvia) 100 mg PO QDAY 09/27/24 [History Confirmed 11/06/24] ferrous sulfate 325 mg (65 mg iron) tablet (Feosol) 325 mg PO QDAY 3 weeks #21 tabs 10/02/24 [Rx Confirmed 11/06/24] Exam Exam Patient is in no acute distress and is cooperative with the examination today. Breathing is nonlabored. In no respiratory distress. Patient has no paraspinal tenderness. Spinal deformity cannot be appreciated. The gait of the patient is nonantalgic Bilateral extremities were evaluated and demonstrates sensation intact to light touch. Palpable pedal pulses are present. No significant edema is present. Bilateral knees were examined and the patient has full strength and range of motion.. The left hip was examined. Patient was able to flex to 90 degrees, adduct to 30 degrees, abduct to 40 degrees, internally rotate to 20 degrees, and externally rotate to 20 degrees. Patient has a negative logroll. Stinchfield is negative. The patient is nontender diffusely to touch. The right hip was examined. Patient was able to flex to 90 degrees, adduct to 30 degrees, abduct to 40 degrees, internally rotate to 20 degrees, and externally rotate to 20 degrees. Patient has a negative logroll. The stinchfield is negative. He is tender over the pubic ramus Assessment and Plan Problem List (1) Closed fracture of multiple pubic rami: Status: Acute Plan: Patient is a pleasant 69-year-old male with multiple pubic ramus fractures as well as a proximal humerus fracture including a displaced greater tuberosity fragment that would likely need a shoulder arthroplasty. We referred him to our but he has difficulty finding any provider that is arthroplasty in this area due to his insurance. He is seeing another surgeon across town who does not do the surgery and we will treat him nonoperatively. I discussed with him that if he is not happy with his function he should get a reverse shoulder arthroplasty. He can see me on an as-needed basis as he has no pain in his hip or pelvis currently Advanced Care Planning Discussion Advance care planning discussed with:: patient Office Procedures GNS Level of Care Nursing/Assessment Patient Status: Established Patient Nursing Assessment/Reassesment: Medication Reconciliation, Update PMH in EMR and Vital Signs Coordination of Care: Complex Care and Chronic Disease 1-5, Education Complex Pt/Fam, Consent,records obtained, informed consent, Results/Orders obtained and Staff clarify orders Established Patient Charge Established Patient Point Assignment: 95 Established Patient Point Charge: EP Level 3 (80-115) MA Intake Visit Data Collection New Patient or Established: Established Patient (seen at [facility] [place] 3 [place] Reason for Visit:: Closed fracture of multiple pubic rami Seen by Clinical Staff ONLY (RN/MA): No Weights And Measures Sealer Required: No PCP or OBGYN visit in last 3 months: Yes Hx Now: No Do You Feel Safe at Home: Yes Authorities Contacted: N/A Questionairres Past Medical History Past Medical History Have you ever been diagnosed with any of the following: Neurological Problems Cerebrovascular Accident (CVA): No Transient Ischemic Attacks (TIA): No Dementia: No Alzheimer's Disease: No Parkinson's Disease: No Brain Tumor: No Meningitis: No Seizures: No Epilepsy: No Multiple Sclerosis: No Cerebral Palsy: No Amyotrophic Lateral Sclerosis (ALS/Jacki Gehrig's): No Guillain-Gallion Syndrome: No Spina Bifida: No Paralysis: No Peripheral Neuropathy: No Altamirano's Palsy: No Subdural Hematoma: No Migraine: No Head Trauma: No Spinal Cord Injury: No Traumatic Brain Injury: No Cardiology Problems Hypercholesterolemia: Yes Congestive Heart Failure: No Hypertension: Yes Respiratory Problems Chronic Obstructive Pulmonary Disease (COPD): No Asthma: No Smoking: No Smoking Cessation Counseling: No Smoking Exposure: No Genital/Urinary Problems Renal Disease: No Endocrine Problems Diabetes Mellitus Type 1: No Diabetes Mellitus Type 2: Yes (TYPE 2) Blood Problems Sickle Cell Disease: No Other Problems Cancer: No Subjective Visit Visit for: follow up visit, hip and x-rays (RESULTS) Immunization / Flu Flu Vaccine in the Last 12 Months: No Flu Vaccine Exclusion Criteria: No Exclusion Criteria History of Present Illness Chief complaint: Closed fracture of multiple pubic rami Date of injury / onset of symptoms: 09/26/2024 Patient is a 69-year-old male with multiple pubic ramus fractures as well as a three-part humeral head fracture involving a displaced greater tuberosity fragment. He reports significant shoulder pain. He is walking with a cane. He is actually walking pretty well and he reports pain is controlled. I am seeing him for his pelvis as he is getting a referral for a reverse total shoulder arthroplasty in [place] Personal History Occupation: RETIRED Pain Pain level (0-10): 3 Pain duration: ON AND OFF Pain location: groin and inside (medial) Pain quality: aching Ambulatory data Ambulatory device: cane Treatments Improvement with previous injections: No Improvement with PT: No Improvement with NSAIDS: no Review of Systems Review of Systems: All systems negative unless otherwise noted in HPI.
[2024-11-06 08:32] VITALS: BP 128/71; PULSE 70; RESP 18; TEMP 36.6; O2SAT 96; BMI 31.1
== END 2024-11-06 08:42 | disposition home or self-care (01) ==
LOC: HODSRG 08:15
PROVIDERS: PCP Nurse Practitioner Family; Referring Provider Nurse Practitioner Family; Supervising Provider Orthopaedic Surgery Adult Reconstructive Orthopaedic Surgery; Visit Provider Orthopaedic Surgery Adult Reconstructive Orthopaedic Surgery
DX: S32.591D Other specified fracture of right pubis, subsequent encounter for fracture with routine healing (principal); X58.XXXD Exposure to other specified factors, subsequent encounter; I10 Essential (primary) hypertension; E78.00 Pure hypercholesterolemia, unspecified; E11.9 Type 2 diabetes mellitus without complications
CPT/HCPCS: 99213; G0463

== ENCOUNTER → 2024-11-22 | Outpatient (CLI) | payer OTHER, MEDICAID, SELFPAY ==
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
== END | disposition home or self-care (01) ==
PROVIDERS: PCP Family Medicine; Referring Provider Orthopaedic Surgery; Visit Provider Orthopaedic Surgery
DX: S42.291A Other displaced fracture of upper end of right humerus, initial encounter for closed fracture (principal); V89.2XXA Person injured in unspecified motor-vehicle accident, traffic, initial encounter
CPT/HCPCS: 73030